=== PATIENT | male | born 1985 | race African-American/Black ===

== ENCOUNTER 2021-11-03 23:38 | Outpatient (CLI) | payer SELFPAY | END 2021-11-03 23:39 | disposition home or self-care (01) | LOC: AMB 12-06 08:55 | PROVIDERS: Visit Provider Emergency Medicine Emergency Medical Services | DX: S09.90XA Unspecified injury of head, initial encounter (principal); S19.9XXA Unspecified injury of neck, initial encounter; V49.9XXA Car occupant (driver) (passenger) injured in unspecified traffic accident, initial encounter; Y92.411 Interstate highway as the place of occurrence of the external cause | CPT/HCPCS: A0425; A0429 ==